=== PATIENT | male | born 2000 | race African-American/Black ===

== ENCOUNTER 2024-01-11 07:27 | Emergency (ER) | payer MEDICAID ==
[~2024-01-11] VITALS: Ht 170.2 cm; Wt 74.0 kg
[2024-01-11 07:36] VITALS: O2SAT 100
[2024-01-11 08:25] LABS: CLARITY URINE CLEAR (CLEAR); COLOR URINE YELLOW (YELLOW); GLUCOSE URINE NEGATIVE (NEGATIVE); KETONES URINE NEGATIVE (NEGATIVE); LEUKOCYTE ESTERASE URINE NEGATIVE (NEGATIVE); NITRITE URINE NEGATIVE (NEGATIVE); OCCULT BLOOD URINE NEGATIVE (NEGATIVE); PH URINE 6.5 (4.5-8.0); PROTEIN URINE NEGATIVE (NEGATIVE)
[2024-01-11] MEDS: MECLIZINE 25MG TABLET PO ONE (08:31)
[2024-01-11 08:49] LABS: BASOPHILS % 0.6 % (0.0-2.0); EOSINOPHILS % 2.7 % (0.0-5.0); HEMATOCRIT. 47.4 % (42.0-52.0); HEMOGLOBIN. 15.7 g/dL (14.0-18.0); LYMPHOCYTES % 41.4 % (20.0-50.0); MEAN CORPUSCULAR HEMOGLOBIN 28.8 pg (28.0-32.0); MEAN CORPUSCULAR HGB CONC 33.1 g/dL (31.0-37.0); MEAN CORPUSCULAR VOLUME 87.1 fL (80.0-94.0); MEAN PLATELET VOLUME 8.1 fl (7.4-10.4); MONOCYTES % 9.7 % (2.0-8.0); NEUTROPHILS % 45.6 % (40.0-76.0); PLATELET 207 x1000/uL (130-400); RED BLOOD CELL COUNT 5.44 mill/uL (4.7-6.1); WHITE BLOOD COUNT 4.4 x1000/uL (4.5-11.0)
[2024-01-11 08:57] LABS: CHLORIDE 104 mEq/L (98-107); POTASSIUM 3.9 mEq/L (3.5-5.1); SODIUM 138 mEq/L (136-145)
[2024-01-11 08:58] LABS: CARBON DIOXIDE 27 mEq/L (21-32)
[2024-01-11 09:03] LABS: CREATININE 1.1 mg/dL (0.6-1.3); GLUCOSE 82 mg/dL (70-105); UREA NITROGEN BLOOD 6 mg/dL (9-23)
[2024-01-11 09:07] LABS: TROPONIN I HIGH SENSITIVITY < 4 ng/L (3.0-53)
[2024-01-11] MEDS ORDERED: MECL-299 MT (09:13)
[2024-01-11 10:03] VITALS: BP 121/71; PULSE 65; RESP 18; TEMP 36.78072; O2SAT 100
== END 2024-01-11 10:06 | disposition home or self-care (01) ==
LOC: ER 07:27
DX: H81.10 Benign paroxysmal vertigo, unspecified ear (principal)
CPT/HCPCS: 99284; 80048; 81003; 85025; 84484; 36415; 93005; J8597

== ENCOUNTER 2024-09-26 15:18 | Emergency (ER) | payer MEDICAID ==
[~2024-09-26] VITALS: Ht 170.2 cm; Wt 62.0 kg
[~2024-09-26 15:18] MED LIST: MECL-299 MT
[2024-09-26 15:22] VITALS: O2SAT 96
[2024-09-26] MEDS: ACETAMINOPHEN 325MG TABLET PO ONE (15:51)
[2024-09-26 17:53] VITALS: BP 129/88; PULSE 88; RESP 16; TEMP 36.8; O2SAT 97
== END 2024-09-26 17:55 | disposition home or self-care (01) ==
LOC: ER 15:18
DX: S52.571A Other intraarticular fracture of lower end of right radius, initial encounter for closed fracture (principal); W18.39XA Other fall on same level, initial encounter; Y93.89 Activity, other specified; Y92.89 Other specified places as the place of occurrence of the external cause; Y99.8 Other external cause status
CPT/HCPCS: 99283; 73130; 29125; A6449